=== PATIENT | male | born 1980 | race Caucasian/White ===

== ENCOUNTER 2024-07-03 16:06 | Outpatient (OUT) | payer BC, SELFPAY ==
--- NOTE | 2024-07-03 | XR_ITS ---
The [address] [address] Patient Name: MOUNA ROBLEDO MRN: [id number] date: 1980 Sex: M Assigned Patient Location: [facility] Current Patient Location: Accession/Order Number: [id number] Exam Date: 07/03/2024 16:25 Report Date: 07/07/2024 08:09 At the request of: NON-STAFF PHYSICIAN Procedure: XR hip RT min 2V PROCEDURE: XR hip RT min 2V COMPARISON: None. HISTORY: RT HIP PAIN M25.551 FINDINGS: BONES:No acute fracture or dislocation. Moderate hip osteoarthritis with joint space narrowing marginal osteophyte formation SOFT TISSUES:Negative. No visible soft tissue swelling. EFFUSION:None visible. OTHER: Negative. XR/XR hip RT min 2V IMPRESSION: Moderate osteoarthritis Electronically authenticated by: EMILY MCDANIEL Date: 07/07/2024 08:09
== END 2024-07-03 16:07 | disposition home or self-care (01) ==
LOC: RAD 16:11
DX: M25.551 Pain in right hip (principal); M16.11 Unilateral primary osteoarthritis, right hip
CPT/HCPCS: 73502